=== PATIENT | female | born 1975 | race Caucasian/White ===

== ENCOUNTER 2021-03-02 21:32 | Emergency (ER) | payer MEDICAID, SELFPAY ==
[~2021-03-02] VITALS: Ht 162.6 cm; Wt 65.8 kg
[2021-03-02 21:48] VITALS: BP_SYST 154
[2021-03-02 23:04] LABS: BASOPHILS % (AUTO) 0.2 % (0.0-2.0); HEMATOCRIT 28.5 % (36-48); HEMOGLOBIN 8.9 g/dL (12.0-16.0); LYMPHOCYTES # (AUTO) 0.4 K/uL (1.0-5.5); LYMPHOCYTES % (AUTO) 9.5 % (20.5-51.5); MEAN CORPUSCULAR HEMOGLOBIN 20 pg (27-31); MEAN CORPUSCULAR HGB CONC 31 % (32-36); MEAN CORPUSCULAR VOLUME 64 fL (79.0-98.0); MONOCYTES # (AUTO) 0.4 K/uL (0.0-1.0); NEUTROPHILS # (AUTO) 3.9 K/uL (1.8-7.7); NEUTROPHILS % (AUTO) 82.3 % (40.0-70.0); PLATELET COUNT (AUTO) 296 K/uL (130-430); RED BLOOD CELL COUNT(AUTO) 4.45 MIL/uL (4.2-6.2); RED CELL DISTRIBUTION WIDTH 19.8 % (9.0-15.0); WHITE BLOOD COUNT (AUTO) 4.7 K/uL (4.8-10.8)
[2021-03-02 23:14] LABS: CALCIUM 8.7 mg/dL (8.4-11.0); CREATININE 0.62 mg/dL (0.55-1.30); POTASSIUM 3.5 mmol/L (3.5-5.1)
[2021-03-02 23:16] LABS: INR 0.9 (0.8-1.2); PROTHROMBIN TIME 9.5 SECS (9.5-12.5)
[2021-03-02] MEDS ORDERED: AZITHROMYCIN 250 MG TABLET PO ONE (23:30)
[2021-03-02] MEDS ORDERED: cefTRIAXone 1 GM IVPB PREMIX 50 ML IV ONE (23:30)
[2021-03-02 23:37] LABS: ALBUMIN 3.1 g/dL (3.4-4.8); TOTAL BILIRUBIN 0.4 mg/dL (0.0-1.0)
[2021-03-02 23:46] LABS: C-REACTIVE PROTEIN QUANT 9.1 mg/dL (0-0.5)
[2021-03-03] MEDS ORDERED: NACL 0.9% 1,000 ML IV ONE (01:15)
[2021-03-03] MEDS ORDERED: DEXAMETHASONE SOD PHOSPHATE 4 MG/ML VIAL IVP ONE (01:15)
[2021-03-03 04:32] VITALS: BP_SYST 133
== END 2021-03-03 04:32 | disposition short-term general hospital (02) ==
LOC: SED 21:32
DX: U07.1 COVID-19 (principal); J18.9 Pneumonia, unspecified organism
CPT/HCPCS: 36415; 36600; 71045; 80053; 82550; 82728; 82803; 83605; 83615; 83880; 84484; 84702; 85025; 85379; 85384; 85610; 85730; 86140; 87040; 87426; 93005; 96361; 96365; 96375; 99285; C9803; J0696; J1100; J7030; Q0144; U0003